=== PATIENT | female | born 1950 | race Caucasian/White ===

== ENCOUNTER → 2016-07-02 | Day surgery (SDC) | payer OTHER ==
[~2016-07-02] VITALS: Ht 165.1 cm; Wt 76.5 kg
[~2016-07-02] MED LIST: ACETAMINOPHEN 1000 MG/100 ML VIAL IV ONE; ATOR40TA16 PO; BUPIVACAINE HCL PF 0.5% 30 ML VIAL ONE; CALC1TAB30 PO; CALC1TAB87 PO; CETI10 PO; CLINDAMYCIN INJ 900 MG in SODIUM CHLORIDE 0.9% INJ 100 ML IV SCH; DEXT 5%-NACL 0.45% 1000 ML INJ 1,000 ML IV SCH; DO NOT ADM ANY ANTICOAGULANT DRUGS XX PRN; ESTR2MIS PV; ESTR42.5V VAGINAL; FAMOTIDINE 20 MG/2 ML VIAL ONE; IBUP200C PO; INSULIN HUMAN REGULAR 1,000 UNITS/10 ML VIAL SQ PRN; LACTATED RINGER'S 1000 ML INJ 1,000 ML IV ONE; LACTATED RINGER'S 1000 ML IV SCH; LEVO25TA4 PO; METOPROLOL TARTRATE 25 MG TAB PO PRN; MIDAZOLAM HCL 2 MG/2 ML VIAL ONE; MULT1TAB84 PO; MULTTAB67 PO; NEOSTIGMINE 3 MG/3 ML SYR IV ONE; NORC5TAB PO; OMEP20CA2 PO; ONDANSETRON HCL 4 MG/2 ML VIAL IV PUSH ONE; POVIDONE IODINE 10% OINT 1 PACKET TOP ONE; PROPOFOL 200 MG/20 ML AMP IV ONE; SODIUM CHLORID 0.9% 500 ML IV SCH; SODIUM CHLORIDE 0.9% FLUSH 5 ML FLUSH IVF PRN; SODIUM CHLORIDE 0.9% FLUSH 5 ML FLUSH IVF SCH; SODIUM CHLORIDE 0.9% INJ 100 ML ONE; SUMA100T2 PO; ZANTTAB PO; [UNRECOGNIZED DRUG - CODE] PO; ePHEDrine/NS 50 MG/5 ML SYR IV ONE; fentaNYL CITRATE 250 MCG/5 ML AMP ONE
[2016-07-02 08:07] VITALS: BP 136/60; PULSE 78; RESP 16; TEMP 98.3; O2SAT 96
[2016-07-02 08:22] LABS: AUTOMATED NEUTROPHIL # 2.8 TH/MM3 (1.8-7.7); BASOPHIL # 0.1 TH/MM3 (0-0.2); EOSINOPHIL # 0.1 TH/MM3 (0-0.4); EOSINOPHIL % 1.5 % (0.0-4.0); HEMATOCRIT 40.3 % (35.0-46.0); HEMO FLAGS DIFF FINAL; LYMPH % 41.9 % (9.0-44.0); LYMPHOCYTE # 2.5 TH/MM3 (1.0-4.8); MEAN CELL VOLUME 91.9 FL (80.0-100.0); MEAN CORPUSCULAR HEMOGLOBIN 31.6 PG (27.0-34.0); MEAN CORPUSCULAR HGB CONC 34.4 % (32.0-36.0); MONO % 7.6 % (0.0-8.0); PLATELET COUNT 217 TH/MM3 (150-450); RED BLOOD COUNT 4.39 MIL/MM3 (4.00-5.30); RED CELL DISTRIBUTION WIDTH 13.1 % (11.6-17.2); WHITE BLOOD COUNT 5.9 TH/MM3 (4.0-11.0)
--- NOTE | 2016-07-02 10:12 | HP.UPD ---
H&P Update Date: Jul 02, 2016 Note The Pre-Admit History and Physical Examination regarding the above named patient was reviewed (including, but not limited to, vital signs, medications, allergies, co-morbid conditions), and upon re-examination it is noted that: Indicated with "X" x - the patient's condition has not significantly changed since the last examination. [] - the patient's condition has changed since the last examination. Changes: Kathy Jarrett MD Jul 02, 2016 10:12
--- NOTE | 2016-07-02 13:22 | HHI.PR ---
Immediate Post Op Note Procedure Date: Jul 02, 2016 Pre Op Diagnosis: (1) Primary osteoarthritis of left hand (2) Mass of finger Post Op Diagnosis: (1) Primary osteoarthritis of left hand (2) Mass of finger Surgeon: Kathy Jarrett Road Roller Engineer(s): None Procedure: 1. Arthrodesis of the left index finger DIP joint. 2. Excision of mass of the left middle finger. 3. Arthroplasty of the left middle finger DIP joint. Specimen(s) removed: Mass of left third finger Anesthesia: General Drains: None Tourniquet time (min at mmHg) 1 hour and 15 minutes to the left index finger using a rolled glove. 23 minutes to the left third finger using a rolled glove. Patient to: PACU Patient Condition: Good Implant/Devices: SEE IMPLANT LOG (if applicable) Date/Time of Procedure: SEE SURGICAL CARE RECORD Kathy Jarrett MD Jul 02, 2016 13:22
[2016-07-02 14:35] VITALS: BP 141/68; PULSE 85; RESP 16; TEMP 97.3; O2SAT 96
--- NOTE | 2016-07-02 18:22 | EKG ---
Date Performed: 07/02/2016 Time Performed: 08:00:56 PTAGE: 65 years EKG: Sinus rhythm NORMAL ECG PREVIOUS TRACING : 05/26/2015 09.56 Since previous tracing, no significant change noted DOCTOR: Anya Gonzales Interpretating Date/Time 07/02/2016 18:21:28
--- NOTE | 2016-07-03 22:04 | MP ---
cc: FANG LAWRENCE M.D. DATE OF SURGERY 07/02/2016 PREOPERATIVE DIAGNOSIS 1. Osteoarthritis of the left index and middle fingers. 2. Mass of the left third finger. POSTOPERATIVE DIAGNOSIS 1. Osteoarthritis of the left index and middle fingers. 2. Mass of the left third finger. PROCEDURE 1. Arthrodesis of the left index finger DIP joint with internal fixation. 2. Excision of mass of the left third finger. 3. Arthroplasty of the DIP joint of the left third finger. ANESTHESIA General SURGEON Fang Lawrence MD INDICATIONS A 65-year-old female with severe painful arthritis of the left index finger at the DIP joint. The joint was essentially unable to be saved. 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 In addition, she did have some mucus cyst formation beneath the extensor tendon as well as some bony spur formation on the dorsal aspect of the neck of the middle phalanx. At the completion of the procedure, the index finger DIP joint had been fused in 25 degrees of flexion and the middle finger had the mass removed and bony tissue removed from the neck of the middle phalanx as well as from the sides of the joint. Tourniquet time on the index finger was 1 hour and 15 minutes and 23 minutes on the third finger. Both times we used a rolled glove. PROCEDURE IN DETAIL The patient was seen preoperatively where the sites and side were identified and marked. The patient was then taken to the operating room, placed in a supine position. Her identity was checked against the arm band and the consent form. Site and side confirmed, time-out called prior to beginning the procedure. The left upper extremity was prepped with Hibiclens and draped in usual sterile fashion. The areas to be incised were outlined with a marking pen as an H type incision directly over the PIP joint dorsally of the left index finger. In addition, a transverse incision with a lateral extension proximally with a "J" shape was designed over the DIP joint of the middle finger and the ulnar side of the middle phalanx. The index finger was simultaneously exsanguinated and the tourniquet placed using a finger from a sterile glove which was rolled up creating the tourniquet effect. Bupivacaine 0.5% plain was used to make metacarpal head blocks dorsally and palmarly for both fingers at the beginning of the procedure. Once the tourniquet was in place, a 15 blade was used to make the incisions as noted above in the shape of an H. Flaps were elevated and raised. Incision was made down through the extensor tendon into the joint. The bone was removed proximally and distally until the edges were nice and smooth and the cortical bone had been removed. The instrument was placed into the center of the proximal part of the joint, that being the middle phalanx, and used to flat down the surface by twisting it. This was done distally. The proximal and distal ends were reamed according to protocol using the P2 and P3 reamers sequentially. The decision was made to use a larger implant due to the size of the bones. The decision was made after the trials were used. The mini C-arm was used to assess the position and the bone once the trial was in place. A trial then was removed. A large 25 degree implant was used. It was placed proximally by the standard technique by squeezing the ends and tamping it into place. The distal end was then squeezed and placed. The two bones were pushed together removing the majority of the space. There was [id number] contact on both sides of the implant. Some of the bone spurs that had been removed were used to fill the defects dorsally as bone graft. X-ray examination at this point showed excellent position and some of the skin was trimmed as it was redundant and the wound was closed with interrupted and running 5-0 nylon suture. The tourniquet was removed after 1 hour and 15 minutes. Attention was then turned to the middle finger where new finger from a glove was placed on the patient's finger and rolled up to create the tourniquet effect. A 15 blade was used to make the chain type incision down through the skin down to the subcutaneous tissue. The flap was elevated and raised exposing the mass which appeared to be giant cell tumor or synovium. It was removed and sent off as pathologic specimen. This was dorsal to the extensor tendon. The extensor tendon was then elevated and there was some cystic material beneath it consistent with a mucus cyst as well as some bone which was removed. Once this was smoothed out, the bone spurs on both sides of the joint were removed and the finger was flexed. This showed excellent gliding. The area was then copiously irrigated with saline both above and beneath the extensor tendon and the joint. Once this was completed, the wound was closed with interrupted running 5-0 nylon suture. The tourniquet was removed after 23 minutes of tourniquet time. Excellent perfusion to both fingers was noted at this point. Pressure was applied. After several minutes there was no evidence of any further oozing in the middle finger and a dressing was applied using povidone-iodine ointment, Adaptic Telfa, 4x4s, 3" hand wrap and a palmar splint was placed. The patient was then taken from the operating room to the recovery room in satisfactory condition having tolerated the procedure well. Postoperative instructions include keeping the arm elevated, keeping it clean and dry and returning next week for follow up. She was given a prescription for hydrocodone at her request. She indicates that she is not allergic to this despite her other allergies. She was also advised to take anti-inflammatories as the first line pain medication. MD KENDRICK Lechuga/ /1:28 PM /9:44 PM [email or web address]
== END | disposition home or self-care (01) ==
LOC: HSDC 07:24
PROVIDERS: ATTEND Specialist
DX: D48.1 Neoplasm of uncertain behavior of connective and other soft tissue (principal); M67.442 Ganglion, left hand; M15.1 Heberden's nodes (with arthropathy); R22.32 Localized swelling, mass and lump, left upper limb; E03.9 Hypothyroidism, unspecified; E78.5 Hyperlipidemia, unspecified
CPT/HCPCS: 01830; 26160; 26535; 26860; 76000; 85025; 88305; 93005; C1713; J0131; J2250; J2405; J2710; J3010; J7120; 88304